=== PATIENT | female | born 1955 | race Two or more races ===

== ENCOUNTER 2021-10-05 08:57 | Emergency (ER) | payer OTHER ==
[~2021-10-05] VITALS: Ht 165.1 cm; Wt 86.2 kg
[2021-10-05] MEDS: BUMETANIDE INJ 0.25 MG/ML VIAL IV SCH (00:30)
--- NOTE | 2021-10-05 09:15 | NUR ---
[id number] [facility] SN[facility] FOR O2 DESATURATION. PT ALSO C/O INTERMITTENT CHEST PAIN SINCE YESTERDAY. RATES CHEST PAIN 3/. DENIES SOB. RESPIRATION REGULAR AND UNLABORED. ATTACHED TO THE MONITOR. WILL CONTINUE TO MONITOR THE PATIENT.
[2021-10-05] MEDS ORDERED: ASCO-352 PO (09:22)
[2021-10-05] MEDS ORDERED: COLL30OI TP (09:22)
[2021-10-05] MEDS ORDERED: DOCU-141 PO (09:22)
[2021-10-05] MEDS ORDERED: CETI-108 PO (09:22)
[2021-10-05] MEDS ORDERED: INSU100V7 SQ (09:22)
[2021-10-05] MEDS ORDERED: DEXT38GE12 BU (09:22)
[2021-10-05] MEDS ORDERED: ERGO500093 PO (09:22)
[2021-10-05] MEDS ORDERED: GLUC1KIT IM (09:22)
[2021-10-05] MEDS ORDERED: UMEC62.5 IH (09:22)
[2021-10-05] MEDS ORDERED: GUAI600T53 PO (09:22)
[2021-10-05] MEDS ORDERED: CARV6.252 PO (09:22)
[2021-10-05] MEDS ORDERED: METH10TA2 PO (09:22)
[2021-10-05] MEDS ORDERED: ALBU8.5H8 INH (09:22)
[2021-10-05] MEDS ORDERED: PANT40TA2 PO (09:22)
[2021-10-05] MEDS ORDERED: DONE10TA44 PO (09:22)
[2021-10-05] MEDS ORDERED: POLY17PO4 PO (09:22)
[2021-10-05] MEDS ORDERED: BUME1TAB34 PO (09:22)
[2021-10-05] MEDS ORDERED: GLIP5TAB13 PO (09:22)
[2021-10-05] MEDS ORDERED: TRAM50TA2 PO (09:22)
[2021-10-05] MEDS ORDERED: BENA20TA9 PO (09:22)
[2021-10-05] MEDS ORDERED: DICL100G34 TP (09:22)
[2021-10-05] MEDS ORDERED: INSU100V11 SQ (09:22)
[2021-10-05] MEDS ORDERED: FERR325T23 PO (09:22)
[2021-10-05] MEDS ORDERED: LUBI8CAP PO (09:22)
[2021-10-05] MEDS ORDERED: ONDA4TAB5 PO (09:22)
[2021-10-05] MEDS ORDERED: BUSP15TA3 PO (09:22)
[2021-10-05] MEDS ORDERED: MULT-447 PO (09:22)
[2021-10-05] MEDS ORDERED: HYDR-4209 PO (09:22)
[2021-10-05] MEDS ORDERED: DIPH25CA51 PO (09:22)
[2021-10-05] MEDS ORDERED: LEVE500T9 PO (09:23)
[2021-10-05] MEDS ORDERED: Myrbetriq PO (09:23)
[2021-10-05] MEDS ORDERED: PRAV40TA3 PO (09:23)
[2021-10-05 09:44] LABS: BASOPHILS # (AUTO) 0.1 K/uL (0.0-0.2); EOSINOPHILS % (AUTO) 5.9 % (0.0-6.0); HEMATOCRIT 27 % (33-45); HEMOGLOBIN 8.9 g/dL (11.5-14.8); LYMPHOCYTES # (AUTO) 0.9 K/uL (0.8-4.8); MEAN CORPUSCULAR HGB CONC 33 g/dl (31.0-36.0); MEAN CORPUSCULAR VOLUME 87 fL (82-100); MONOCYTES # (AUTO) 0.5 K/uL (0.1-1.30); MONOCYTES % (AUTO) 7.9 % (2.0-12.0); NEUTROPHILS # (AUTO) 4.8 K/uL (1.8-8.9); NEUTROPHILS % (AUTO) 72.2 % (43.0-81.0); PLATELET COUNT (AUTO) 121 K/uL (150-450); RED BLOOD CELL COUNT(AUTO) 3.13 MIL/uL (4.0-5.2); WHITE BLOOD COUNT (AUTO) 6.7 K/uL (4.3-11.0)
[2021-10-05 10:09] LABS: ALBUMIN 2.8 g/dL (3.4-5.0); BILIRUBIN,DIRECT 0.3 mg/dL (0.0-0.2); BILIRUBIN,TOTAL 0.6 mg/dL (0.2-1.0); CALCIUM, SERUM 10.7 mg/dL (8.5-10.1); CREATININE 1.5 mg/dL (0.6-1.3); POTASSIUM 4.5 mmol/L (3.5-5.1); TOTAL PROTEIN, SERUM 8.5 g/dL (6.4-8.2)
--- NOTE | 2021-10-05 10:22 | NUR ---
COVID ANTIGEN SWAB DONE AND SENT TO THE LAB
--- NOTE | 2021-10-05 11:45 | NUR ---
[facility] INTERIOR DESIGN TEACHER [phone] FAX [phone] CARE OF DR. BURGOS AT [facility]
[2021-10-05] MEDS ORDERED: ASPIRIN 81 MG TAB.CHEW PO ONE (12:00)
[2021-10-05] MEDS ORDERED: ASPIRIN 81 MG TAB.CHEW ONE (12:02)
--- NOTE | 2021-10-05 12:14 | NUR ---
DR. BURGOS [phone]
[2021-10-05] MEDS ORDERED: BUMETANIDE INJ 6 MG in IV NS 0.9% 36 ML IV ONE (12:30)
[2021-10-05] MEDS ORDERED: FUROSEMIDE 40 MG/4 ML VIAL IV ONE (12:30)
--- NOTE | 2021-10-05 16:58 | NUR ---
.CALLED [facility] NET REPAIR[facility], AND WAS NOTIFIED THAT THE PT WILL BE STAYING HERE
--- NOTE | 2021-10-05 20:18 | NUR ---
PT WITH C/O PAIN. INFORMED DR DUMONT W/ AN ORDER FOR NORCO 5. NOTED. AWAITING FOR ADMITTING ORDERS.
[2021-10-05] MEDS ORDERED: HYDROCODONE/APAP 5/325MG TABLET PO ONE (20:30)
[2021-10-05] MEDS ORDERED: HYDROCODONE/APAP 5/325MG TABLET ONE (20:37)
--- NOTE | 2021-10-05 21:25 | NUR ---
IRIS FROM [facility] NUMBER: [phone]
[2021-10-05] MEDS ORDERED: *INSULIN REGULAR(HUMULIN R)HUM 100 UNIT/ML VIAL SQ PRN (21:30)
[2021-10-05] MEDS ORDERED: DEXTROSE 50%-WATER 50 ML DISP.SYRIN IV PRN (21:30)
[2021-10-05] MEDS ORDERED: INSULIN REGULAR, HUMAN 100 UNIT/ML 3 ML VIAL SQ PRN (21:30)
[2021-10-05] MEDS ORDERED: diphenhydrAMINE HCL 25 MG CAPSULE PO PRN (21:30)
[2021-10-05] MEDS ORDERED: TRAMADOL HCL 50 MG TABLET PO PRN (21:30)
[2021-10-05] MEDS: BLOOD SUGAR DIAGNOSTIC 1 EACH STRIP VI SCH (22:00)
[2021-10-06] MEDS ORDERED: diphenhydrAMINE HCL 25 MG CAPSULE ONE (00:10)
[2021-10-06] MEDS ORDERED: TRAMADOL HCL 50 MG TABLET ONE (00:10)
[2021-10-06] MEDS ORDERED: ALBUTEROL FS 2.5 MG/3 ML VIAL.NEB NEB PRN (00:30)
[2021-10-06] MEDS ORDERED: BUMETANIDE INJ 0.25 MG/ML VIAL ONE ×2 (00:56→09:07)
[2021-10-06] MEDS: IPRATROPIUM NEB FS 0.5 MG/2.5 ML AMPUL.NEB NEB SCH ×3 (01:30→07:35)
[2021-10-06] MEDS ORDERED: IPRATROPIUM NEB FS 0.5 MG/2.5 ML AMPUL.NEB ONE ×2 (02:00→08:13)
--- NOTE | 2021-10-06 02:04 | NUR ---
PT REFUSED BREATHING TX
--- NOTE | 2021-10-06 03:26 | NUR ---
Patient is resting comfortably in bed with eyes closed. Easily aroused. VSS
--- NOTE | 2021-10-06 03:30 | NUR ---
REC'D A CALL FROM DARY, [facility] [employer], WILLING TO TRANSFER THE PT TO [facility]. DARY WAS INFORMED THAT THE PT IS ALREADY ADMITTED BY DR DUMONT AND 'S ORDER AND AUTHORIZATION IN ORDER TO TRANSFER THE PT AND WILL INFORM HER
[2021-10-06] MEDS ORDERED: HYDROCODONE/APAP 5/325MG TABLET ONE ×2 (03:54→10:48)
[2021-10-06] MEDS: HYDROCODONE/APAP 5/325MG TABLET PO PRN ×2 (03:56→10:50)
--- NOTE | 2021-10-06 04:01 | NUR ---
PT SITTING QUIETLY IN BED, ATTACHED TO MONITOR AND POX. VSS
--- NOTE | 2021-10-06 04:45 | NUR ---
SPOKE TO DR DUMONT AND INFORMED HIM REGARDING POSSIBLE TRANSFER. PER DR PEDRO: OK TO TRANSFER THE PT TO [facility]
[2021-10-06 05:16] LABS: CALCIUM, SERUM 10.3 mg/dL (8.5-10.1); CREATININE 1.6 mg/dL (0.6-1.3); POTASSIUM 4.1 mmol/L (3.5-5.1)
[2021-10-06 05:18] LABS: BASOPHILS % (AUTO) 0.8 % (0.0-2.0); EOSINOPHILS % (AUTO) 6.5 % (0.0-6.0); HEMATOCRIT 27 % (33-45); HEMOGLOBIN 8.9 g/dL (11.5-14.8); LYMPHOCYTES # (AUTO) 0.9 K/uL (0.8-4.8); LYMPHOCYTES % (AUTO) 14.1 % (20.0-44.0); MEAN CORPUSCULAR HGB CONC 33 g/dl (31.0-36.0); MEAN CORPUSCULAR VOLUME 87 fL (82-100); MONOCYTES # (AUTO) 0.5 K/uL (0.1-1.30); MONOCYTES % (AUTO) 8.6 % (2.0-12.0); NEUTROPHILS # (AUTO) 4.3 K/uL (1.8-8.9); PLATELET COUNT (AUTO) 122 K/uL (150-450); RED BLOOD CELL COUNT(AUTO) 3.11 MIL/uL (4.0-5.2); WHITE BLOOD COUNT (AUTO) 6.1 K/uL (4.3-11.0)
[2021-10-06 05:22] LABS: ALBUMIN 2.7 g/dL (3.4-5.0); BILIRUBIN,TOTAL 0.6 mg/dL (0.2-1.0); TOTAL PROTEIN, SERUM 8.1 g/dL (6.4-8.2)
[2021-10-06 05:30] LABS: THYROID STIMULATING HORMONE 3.384 uIU/mL (0.358-3.74)
--- NOTE | 2021-10-06 05:35 | NUR ---
IRIS CM REGAL . PLS INFORM CM IF PT CAN TRANSFER
--- NOTE | 2021-10-06 05:46 | NUR ---
CALLED [facility] LETTERER AND LEFT A VOICE MESSAGE FOR TICO. SPOKE TO DR DUMONT. PER MD COLLINS TO TRANSFER PT TO [facility]
[2021-10-06 05:47] VITALS: BP 129/75
--- NOTE | 2021-10-06 06:08 | NUR ---
CALL FROM [facility] AT [facility] WITH FOLLOWING TRANSFER INFO: PT GOT ACCEPTED AT [facility]. GOING TO [facility], RM 171. NUMBER FOR REPORT: [phone]. ALS TRANSPORTATION BY [facility] AT 1030
[2021-10-06] MEDS ORDERED: glipiZIDE 5 MG TABLET PO SCH (07:30)
[2021-10-06] MEDS ORDERED: PANTOPRAZOLE 40 MG TABLET.DR PO SCH (07:30)
[2021-10-06] MEDS ORDERED: glipiZIDE 10 MG TABLET ONE (07:40)
[2021-10-06] MEDS ORDERED: PANTOPRAZOLE 40 MG TABLET.DR PO ONE (07:40)
[2021-10-06] MEDS: BLOOD SUGAR DIAGNOSTIC 1 EACH STRIP VI SCH (07:48)
[2021-10-06] MEDS ORDERED: INSULIN GLARGINE, 100 UNIT/ML CARTRIDGE SQ SCH (08:00)
--- NOTE | 2021-10-06 08:17 | NUR ---
RT Received patient on 4L nasal cannula. HR 63 SPO2 95%. Breathing tx given to patient. POST TX HR 69 SPO2 97%.
[2021-10-06] MEDS ORDERED: APIXABAN 5 MG TABLET PO SCH (09:00)
[2021-10-06] MEDS ORDERED: GUAIFENESIN LA 600 MG TABLET.SA PO SCH (09:00)
[2021-10-06] MEDS ORDERED: Medication Not On Formulary EA ([Myrbetriq] 50 MG) PO SCH (09:00)
[2021-10-06] MEDS ORDERED: ASCORBIC ACID 500 MG TABLET PO SCH (09:00)
[2021-10-06] MEDS ORDERED: FERROUS SULFATE (325 MG) 325 MG/TAB TABLET PO SCH (09:00)
[2021-10-06] MEDS ORDERED: ERGOCALCIFEROL (VITAMIN D 2) 50,000 UNIT CAPSULE PO SCH (09:00)
[2021-10-06] MEDS ORDERED: MULTIVIT W/MINERALS 1 TAB TABLET PO SCH (09:00)
[2021-10-06] MEDS: LEVETIRACETAM (250 MG) 250 MG TABLET PO SCH (09:00)
[2021-10-06] MEDS ORDERED: DONEPEZIL 5 MG TABLET PO SCH (09:00)
[2021-10-06] MEDS ORDERED: METHADONE HCL 10 MG TABLET PO SCH ×2 (09:00)
[2021-10-06] MEDS ORDERED: cetrizine 10 MG TABLET PO SCH (09:00)
[2021-10-06] MEDS ORDERED: POLYETHYLENE GLYCOL 3350 17 GM POWD.PACK PO SCH (09:00)
[2021-10-06] MEDS ORDERED: CARVEDILOL 6.25 MG TABLET PO SCH (09:00)
[2021-10-06] MEDS ORDERED: DOCUSATE SODIUM 100 MG CAPSULE PO SCH (09:00)
[2021-10-06] MEDS: BUMETANIDE INJ 0.25 MG/ML VIAL IV SCH (09:00)
[2021-10-06] MEDS ORDERED: busPIRone 5 MG TABLET PO SCH (09:00)
[2021-10-06] MEDS ORDERED: BENAZEPRIL HCL 20 MG TABLET PO SCH (09:00)
[2021-10-06] MEDS ORDERED: Medication Not On Formulary EA (Lubiprostone (Amitiza) 8 MCG) PO SCH (09:00)
[2021-10-06] MEDS ORDERED: FERROUS SULFATE (325 MG) 325 MG/TAB TABLET ONE (09:07)
[2021-10-06] MEDS ORDERED: APIXABAN 5 MG TABLET ONE (09:07)
[2021-10-06] MEDS ORDERED: cetrizine 10 MG TABLET ONE (09:08)
[2021-10-06] MEDS ORDERED: busPIRone 5 MG TABLET ONE (09:08)
[2021-10-06] MEDS ORDERED: CARVEDILOL 6.25 MG TABLET ONE (09:08)
[2021-10-06] MEDS ORDERED: BENAZEPRIL HCL 10 MG TABLET ONE (09:08)
[2021-10-06] MEDS ORDERED: LEVETIRACETAM (250 MG) 250 MG TABLET PO ONE (09:09)
[2021-10-06] MEDS ORDERED: MULTIVIT W/MINERALS 1 TAB TABLET ONE (09:09)
[2021-10-06] MEDS ORDERED: GUAIFENESIN LA 600 MG TABLET.SA PO ONE (09:09)
[2021-10-06] MEDS ORDERED: DOCUSATE SODIUM 100 MG CAPSULE PO ONE (09:09)
[2021-10-06] MEDS ORDERED: DONEPEZIL 5 MG TABLET ONE (09:10)
[2021-10-06] MEDS ORDERED: ASCORBIC ACID 500 MG TABLET ONE (09:10)
--- NOTE | 2021-10-06 10:31 | NUR ---
PT REFUSED MORNING MEDICATION UNTIL SHE RECIVED HER METHADONE. CONTACTED THE CLINIC TO RETRIEVE CONSENT TO GIVE THE METHODONE. THEY STATED THE WILL FAX CONSENT FOR THE PT TO SIGN AND THEN THEY WILL SENT CONSENT. NO PAPERS WERE RECIEVED. WILL NOTIFIED NURSE AT [facility].
--- NOTE | 2021-10-06 11:04 | NUR ---
REPORT GIVEN TO GUNNER FOR AMAN
--- NOTE | 2021-10-06 11:22 | NUR ---
[facility] TRANSPORTING PATIENT TO [facility]
[2021-10-06] MEDS ORDERED: ATORVASTATIN 10 MG TABLET PO SCH (18:00)
== END 2021-10-06 11:35 | disposition short-term general hospital (02) ==
LOC: ER 09:04 → TRANSITION 10-06 00:19 → UNDOADMIN 10-06 00:19 → ER 10-06 11:35
DX: I13.0 Hypertensive heart and chronic kidney disease with heart failure and stage 1 through stage 4 chronic kidney disease, or unspecified chronic kidney disease (principal); E11.22 Type 2 diabetes mellitus with diabetic chronic kidney disease; N18.30 Chronic kidney disease, stage 3 unspecified; I50.33 Acute on chronic diastolic (congestive) heart failure; Z79.4 Long term (current) use of insulin; Z79.899 Other long term (current) drug therapy; F11.20 Opioid dependence, uncomplicated; E66.9 Obesity, unspecified; Z68.31 Body mass index [BMI] 31.0-31.9, adult; I27.20 Pulmonary hypertension, unspecified; D64.9 Anemia, unspecified; I48.0 Paroxysmal atrial fibrillation; Z79.01 Long term (current) use of anticoagulants; M96.89 Other intraoperative and postprocedural complications and disorders of the musculoskeletal system; Y84.8 Other medical procedures as the cause of abnormal reaction of the patient, or of later complication, without mention of misadventure at the time of the procedure; E78.5 Hyperlipidemia, unspecified; Z86.74 Personal history of sudden cardiac arrest; I25.2 Old myocardial infarction; Z99.81 Dependence on supplemental oxygen; I45.10 Unspecified right bundle-branch block; E88.09 Other disorders of plasma-protein metabolism, not elsewhere classified; Z20.822 Contact with and (suspected) exposure to COVID-19; R09.02 Hypoxemia; R07.9 Chest pain, unspecified
CPT/HCPCS: 36415 ×2; 71045; 80048; 80053; 80076; 82962 ×2; 83605; 83880; 84443; 84484; 85025 ×2; 87040 ×2; 87081; 87426; 93005; 93307; 94640; 96365; 96366; 96372; 99291; J1815; J3490 ×2; Q0163; C9803